=== PATIENT | male | born 1980 ===

== ENCOUNTER 2024-11-24 19:41 | Emergency (ER) | payer OTHER ==
[~2024-11-24] VITALS: Ht 170.2 cm; Wt 66.0 kg
[2024-11-24] MEDS: proparacaine 0.5% ophthalmic drops 15ml EACHEYE ONE (20:59)
[2024-11-24] MEDS ORDERED: POLOS EACHEYE (21:07)
[2024-11-24 21:15] VITALS: BP 120/80; PULSE 70; RESP 18; TEMP 98.6; O2SAT 99
== END 2024-11-24 21:16 | disposition home or self-care (01) ==
LOC: ER 19:42
DX: T15.11XA Foreign body in conjunctival sac, right eye, initial encounter (principal); W22.8XXA Striking against or struck by other objects, initial encounter; Y93.89 Activity, other specified; Y92.89 Other specified places as the place of occurrence of the external cause; Y99.8 Other external cause status
CPT/HCPCS: 65205; 99283; 99284